=== PATIENT | female | born 1960 | race Caucasian/White ===

== ENCOUNTER → 2021-04-13 10:07 | Outpatient (CLI) | payer OTHER ==
[2014-07-29 15:10] VITALS: BMI 23.2
[~2021-04-13 10:07] MED LIST: ASPIRIN325 MG PO; CHANTIX 1 MG TAB1 MG PO; ECOTRIN325 MG PO; EFFIENT10 MG PO; LIPITOR10 MG PO; LISINOPRIL2.5 MG PO; LOPRESSOR25 MG PO; SYNTHROID100 MCG PO; ZIAC 5-6.25 MG1 TAB PO
--- NOTE | 2021-04-17 09:26 | ST ---
PATIENT:DEEPA CADET MEDICAL RECORD: [id number] SEX: F LOCATION:[facility] ORDER #: ADMISSION DATE: 04/13/21 AGE OF PATIENT: 60 REFERRING PHYSICIAN: INTERPRETING PHYSICIAN: ROBERT FORMAN MD DATE OF SERVICE: 04/13/2021 NUCLEAR STRESS TEST Gated: Shows decreased thickening of wall motion of the anterior apex. However, LV function remains normal with a calculated EF of 71%. SPECT imaging: SPECT imaging performed. Short axis view shows a defect from the mid anterior wall down to the anterior apex and true apical region. This confirmed the horizontal axis with a reversible defect from the mid anterior wall down to the anterior apex and true apical region. Vertical axis shows a reversible apical defect. FINAL IMPRESSION: 1. Abnormal gated with abnormal wall motion, but with preserved EF 71%. 2. Abnormal SPECT imaging with a reversible defect seen in all 3 views The defect severity is severe, defect size is medium. FINAL IMPRESSION: This is a patient with a known history of coronary artery disease and multiple risk factors. The scan is certainly concerning for recurrence of [place] disease versus restenosis of previous intervention. LV function remains normal. Angiography is recommended if clinically indicated. TRANSINT:[id number] Voice Confirmation ID: [id number] DOCUMENT ID: [id number] ROBERT FORMAN MD at 0926 CC: [id number] DICTATION DATE: 04/14/21 0856 [place] SERVER: 04/15/21 0108 DEP CLI 04/13/21 [place] [id number]
== END | disposition home or self-care (01) ==
LOC: D.HCCARDIO 10:07
PROVIDERS: ATTEND Internal Medicine Interventional Cardiology
DX: R07.9 Chest pain, unspecified (principal)

== ENCOUNTER 2021-04-25 06:45 | Day surgery (SDC) | payer OTHER ==
[~2021-04-25] VITALS: Ht 157.5 cm; Wt 71.2 kg
--- NOTE | ~2021-04-25 | HEMODYNAMI ---
PATIENT:DEEPA CADET MEDICAL RECORD: [id number] : 58 LOCATION:[facility] ADMISSION DATE: 04/25/21 Generatedon:19:45 Patient name: DEEPA CADET Patient #: [id number] SSN: : Date of study: 04/25/2021 Page: Of Hemodynamic Procedure Report Patient Data Patient Demographics Procedure consent was obtained First Name: DEEPA Gender: Female Last Name: HELIO : 1960 [facility] Initial: LATISHA Age: 60 year(s) Patient #: [id number] Race: Unknown Additional ID: [id number] Contact details [address]: [address] [place] [address] State: [place] City: [place] Zip code: [address] Past Medical History Performed procedures and imaging results Date Procedure Procedure Results Comments Stress testing Positive->Intermediate with SPECT MPI risk History of disease Date Diagnosis Comments CAD Allergies Allergen Reaction Date Comments Reported Other allergy 04/25/2021 HYDROCODONE Admission Admission Data Admission Date: 04/25/2021 Admission Time: 6:45 Arrival Date: 04/25/2021 Arrival Time: 0:00 Height (in.): 61.81 BSA: 1.72 (m2) Height (cm.): 157 BMI: 28.8 (kg/m2) Weight (lbs.): 156.53 Weight (kg.): 71 Lab Results Lab Result Date: 04/25/2021 Lab Result Time: 0:00 Biochemistry Name Units Result Min Max BUN mg/dl 12 --(-*--)-- 7 18 Creatinine mg/dl 0.5 -*(----)-- 0.6 1.3 eGFR ml/min 90 --(*---)-- 90 120 NONAFRICAN CBC Name Units Result Min Max Hematocrit % 41.1 -*(----)-- 42 54 Hemoglobin g/dl 14 --(*---)-- 13.5 17.5 Procedure Procedure Types Cath Procedure Diagnostic Procedure [facility] w/Coronaries Sedation Charges Moderate Sedation 10-24 minutes Peripheral Cath Diagnostic Procedure Independent Driver Peripheral Procedures AFRO Diagnostic Procedure Description Procedure Date Procedure Date: 04/25/2021 Procedure Start Time: 9:26 Procedure End Time: 9:43 Procedure Staff Name Function Enoc Beck MD Performing Physician Lidia Johnson RT Monitor Josh Barnhart RT Scrub Jamie Dawkins RN Nurse Todd Darden RN Appraiser Land Procedure Data Cath Procedure Fluoroscopy Diagnostic fluoroscopy Total fluoroscopy Time: 3.9 time: 3.9 min min Diagnostic fluoroscopy Total fluoroscopy dose: 617 dose: 617 mGy mGy Contrast Material Contrast Material Type Amount (ml) Isovue 300 122 Entry Location Entry Primary Successful Side Size Upsize Upsize Entry Closure Succes sful Closure Location (Fr) 1 (Fr) 2 (Fr) Remarks Device Remarks Femoral Right 5 Fr Exoseal artery Estimated blood loss: 5 ml Diagnostic catheters Device Type Used For End Catheter Placement MULTIPACK JL 4.0 5Fr Procedure catheter MULTIPACK 3DRC 5Fr Procedure catheter MULTIPACK Pigtail 5 Fr Procedure catheter DIAGNOSTIC JL 3.5 5Fr Procedure catheter ([id number]) Procedure Complications No complications Procedure Medications Medication Administration Route Dosage 0.9% NaCl I.V. 100 ml/hr Oxygen etCO2 Nasal cannula 2 l/min Heparin Flush Bag added to field 2 bags (1000units/500ml NS) Lidocaine 2% added to field 20 Versed I.V. 1 mg Fentanyl I.V. 50 mcg Versed I.V. 1 mg Fentanyl I.V. 50 mcg Hemodynamics Rest BSA: 1.72 (m2) O2 Consumption: Estimated: 161.68 (ml/min) O2 Consumption indexed : Estimated:94 (ml/min/m) Heart Rate: 69 (bpm) Pressure Samples Time Site Value (mmHg) Purpose Heart Use Rate(bpm) 9:31 LV 119/18,20 Snapshot 69 Snapshots Pre Cath Intra NCS Post Cath Vital Signs Time Heart Resp SPO2 etCO2 NIBP (mmHg) Rhythm Pain Sedation Rate (ipm) (%) (mmHg) Status Level (bpm) 9:15:33 59 13 100 21.8 140/73(118) NSR 0 (11) 10(A) , No pain 9:19:40 59 18 97 27.8 121/79(81) NSR 0 (11) 10(A) , No pain 9:23:52 58 18 97 21.7 95/57(73) NSR 0 (11) 10(A) , No pain 9:28:00 66 16 91 8.2 92/57(76) NSR 0 (11) 9(A) , No pain 9:32:02 71 17 94 34.5 107/66(91) NSR 0 (11) 9(A) , No pain 9:36:14 80 10 94 12 102/56(81) NSR 0 (11) 10(A) , No pain 9:41:06 78 9 93 29.3 104/64(78) NSR 0 (11) 10(A) , No pain Medications Time Medication Route Dose Verified Delivered Reason Notes Effe ctiveness by by 9:13:57 0.9% NaCl I.V. 100 Jamie Jamie Per ml/hr Juancho Dawkins physician RN RN 9:14:08 Oxygen etCO2 2 Jamie Jamie for low 02 Nasal l/min Lorigan Lorigan sats cannula RN RN 9:14:19 Heparin Flush added 2 Jamie Jamie used for Bag to bags Lorigan Lorigan procedure (1000units/500ml field RN RN NS) 9:14:33 Lidocaine 2% added 20ml Jamie Jamie for local to vial Lorigan Lorigan anesthetic field RN RN 9:22:41 Versed I.V. 1 mg Jamie Jamie for Lorigan Lorigan sedation RN RN 9:22:59 Fentanyl I.V. 50 Jamie Jamie for mcg Lorigan Lorigan sedation RN RN 9:25:00 Versed I.V. 1 mg Jamie Jamie for Lorigan Lorigan sedation RN RN 9:25:05 Fentanyl I.V. 50 Jamie Jamie for mcg Lorigan Lorigan sedation RN corporate ethics officer Log Time Note 8:55:24 Informed consent obtained and on chart 8:56:49 Procedure Status Elective Heart Cath (OP). 8:56:53 Plan of Care:Hemodynamics will remain stable., Cardiac rhythm will remain stable., Comfort level will be maintained., Respiratory function will remain adequate., Patient/ family verbilizes understanding of procedure., Procedure tolerated without complication., Recovers from procedure without complications.. 8:56:55 Time tracking: Regular hours (M-F 7:00 - 5:00) 8:57:06 H&P Date Dictated: 04/05/2021 Within 30 days and on chart., H&P Addendum completed by physician on day of procedure. (MUST COMPLETE FOR ALL OUTPATIENTS). 8:57:21 Patient allergic to Other allergyHYDROCODONE 8:58:27 Todd Darden RN sent for patient. Start room use. 9:05:33 Lab Result : eGFR NONAFRICAN 90 ml/min 9:05:33 Lab Result : Hemoglobin 14 g/dl 9::33 Lab Result : BUN 12 mg/dl 9::33 Lab Result : Creatinine 0.5 mg/dl 9:05:33 Lab Result : Hematocrit 41.1 % 9:05:38 Patient Weight : 156.53 lbs 9:05:41 Patient Height : 61.81 inches 9:05:45 Arrival Date: 04/25/2021 12:00:00 AM 9:07:22 Patient received from Pre/Post Procedure Room to CCL 1 Alert and oriented. Tansferred to table in Supine position. 9:07:23 Warm blankets applied, and juli hugger turned on for patient comfort. 9:07:23 Correct patient and procedure confirmed by team. 9:13:57 0.9% NaCl 100 ml/hr I.V. was administered by Jamie Dawkins RN; Per physician; Verbal order read back and verified. 9:14:08 Oxygen 2 l/min etCO2 Nasal cannula was administered by Jamie Dawkins RN; for low 02 sats; Verbal order read back and verified. 9:14:19 Heparin Flush Bag (1000units/500ml NS) 2 bags added to field was administered by Jamie Dawkins RN; used for procedure; Verbal order read back and verified. 9:14:28 ECG and BP/O2 sat monitors applied to patient. 9:14:30 Vital chart was started 9:14:33 Lidocaine 2% 20ml vial added to field was administered by Jamie Dawkins RN; for local anesthetic; Verbal order read back and verified. 9:14:34 Rhythm: sinus rhythm 9:14:35 Full Disclosure recording started 9:14:36 Pre-procedure instructions explained to patient. 9:14:36 Pre-op teaching completed and patient verbalized understanding. 9:14:38 Family in patients room. 9:14:39 Patient NPO since Midnight. 9:14:44 Is the patient allergic to Iodine/contrast media? No. 9:14:46 Is patient on blood thinner?Yes 9:14:48 ACC The patient was administered the following blood thiners within the last 24 hours: ACCPlavix 9:14:51 Patient diabetic? No. 9:14:53 Patient not . Patient is over age 55. 9:15:39 Previous problem with sedation/anesthesia? No ? 9:15:40 Snore? Yes 9:15:41 Sleep apnea? No 9:15:43 Deviated septum? No 9:15:44 Opens mouth fully? Yes 9:15:48 Sticks out tongue? Yes 9:15:49 Airway obstruction? No ? 9:15:52 Dentures? No ? 9:16:03 Patient pain scale 0/10 ?. 9:16:13 Lab results completed and on chart. 9:16:18 IV patent on arrival in left hand with 0.9% NaCl at KVO. 9:16:25 Stress Test: yes; abnormal ANTERIOR 9:16:29 Right groin area was prepped with chlora-prep and draped in sterile fashion 9:16:31 Alarms reviewed by R. N. 9:16:31 Sharps counted by scrub and verified by R.N. 9:18:09 Procedure type changed to Cath procedure, Diagnostic procedure, LHC, LHC w/Coronaries, Sedation Charges, Moderate Sedation 10-24 minutes, Peripheral Cath Diagnostic Procedure, Independent Driver Peripheral Procedures, AFRO Diagnostic 9:19:23 Use device set Femoral Dx 9:19:24 ACIST Syringe (46334) opened to sterile field. 9:19:24 Bag Decanter (2002S) opened to sterile field. 9:19:26 ACIST Hand Control (76245) opened to sterile field. 9:19:26 ACIST Manifold (90720) opened to sterile field. 9:19:27 Tegaderm 4 x 4 (1626W) opened to sterile field. 9:19:28 Medline Cath Pack ([id number]) opened to sterile field. 9:19:30 DIAGNOSTIC Multipack 5Fr catheter set (TX4134) opened to sterile field. 9:19:32 SHEATH 5FR [place] (NDL611) opened to sterile field. 9:19:33 EMERALD Guide Wire (817-331) opened to sterile field. 9:20:51 --------ALL STOP TIME OUT------ 9::52 Final Timeout: patient, procedure, and site verified with staff and physician. All members of the team are in agreement. 9::52 Right groin site verified by team. 9:20:55 Fire Safety Assessment: A--An alcohol-based skin anteseptic being used preoperatively., C--Open oxygen or nitrous oxide is being used., D--An ESU, laser, or fiber-optic light is being used. 9:20:57 Physical assessment completed. ASA score P 2 - A patient with mild systemic disease as per Enoc Beck MD. 9::59 1) 90+ Normal kidney functon but urine findings or structural abnormalities or genetic trait point to kidney disease. 9:21:02 Maximum allowable contrast dose (3.7 X eGFR X 0.75)250 ml. 9:21:05 Sedation plan: IV Moderate Sedation Medication:Versed, Fentanyl 9::14 Zero performed for pressure channel P1 9::41 Versed 1 mg I.V. was administered by Jamie Dawkins RN; for sedation; Verbal order read back and verified. 9::59 Fentanyl 50 mcg I.V. was administered by Jamie Dawkins RN; for sedation; Verbal order read back and verified. 9:25:00 Versed 1 mg I.V. was administered by Jamie Dawkins RN; for sedation; Verbal order read back and verified. 9:25:02 Procedure started. 9:25:05 Fentanyl 50 mcg I.V. was administered by Jamie Dawkins RN; for sedation; Verbal order read back and verified. 9:25:14 Zero performed for pressure channel P1 9:25:18 Zero performed for pressure channel P1 9:25:20 Zero performed for pressure channel P1 9::31 Zero performed for pressure channel P1 9::34 Zero performed for pressure channel P1 9::38 Zero performed for pressure channel P1 9::43 Zero performed for pressure channel P1 9::54 Zero performed for pressure channel P1 9:26:04 Local anesthetic to right femoral artery with Lidocaine 2% by Enoc Beck MD.INITIAL ACCESS ONLY 9:26:28 A 5 Fr sheath was inserted into the Right Femoral artery 9::42 A MULTIPACK JL 4.0 5Fr catheter was advanced over the wire and used for Procedure. 9:28:03 LCA angiography performed. 9:28:04 Catheter removed. 9:28:17 A MULTIPACK 3DRC 5Fr catheter was advanced over the wire and used for Procedure. 9:29:57 RCA angiography performed. 9:29:59 Catheter removed. 9:30:01 ACCDominant side:Right 9:30:09 A MULTIPACK Pigtail 5 Fr catheter was advanced over the wire and used for Procedure. 9:31:05 LV gram done using PERSAUD 9:31:08 Injector settings: Ml/sec: 10, Volume: 20, 9:31:41 LV hemodynamics recorded. 9:31:45 EF : 55 % 9:32:00 PIGTAIL PULLED DOWN FOR AFRO 9:32:25 Abdominal angiogram w/ runoff was performed. 9:32:28 Left leg runoff performed. 9:33:20 Right leg runoff performed. 9:33:50 Catheter removed. 9:34:19 A DIAGNOSTIC JL 3.5 5Fr catheter ([id number]) was advanced over the wire and used for Procedure. 9:36:40 LCA angiography performed. 9:37:25 Catheter removed. 9:38:50 EXOSEAL 5Fr (EX500) opened to sterile field. 9:39:15 Sheath removed intact; hemostasis achieved with Exoseal to the Right Femoral artery. 9:39:17 Procedure ended.(Physican Out) 9:39:38 Fluoroscopy time 03.90 minutes. 9:39:47 Fluoroscopy dose: 617 mGy 9:39:47 Flurop Dose total: 617 9:39:59 Contrast amount:Isovue 300 122ml. 9:42:07 Dose Area Product 05864 mGy/cm. 9:42:09 Maximum allowable dose exceeded? No. 9:42:09 Sharps counted by scrub and verified by R.N. 9:42:13 Insertion/operative site no bleeding no hematoma. 9:42:16 Post-op/insertion site Right Femoral artery dressed using a 4 x 4 and Tegaderm. 9:42:19 Post-procedure physical assessment completed. ASA score P 2 - A patient with mild systemic disease as per Enoc Beck MD. 9:42:22 Post procedure rhythm: sinus rhythm 9:42:26 Estimated blood loss: 5 ml 9:42:27 Post procedure instruction explained to patient.Patient verbalizes understanding. 9:42:27 Patient needs reinforcement of post procedure teaching. 9:43:02 Procedure and supply charges have been captured, reviewed, submitted and are correct. 9:43:05 Procedure Complication : No complications 9:43:07 Vital chart was stopped 9:43:09 [facility] Findings: MVD- CABG consult 9:43:11 Operative report dictated upon procedure completion. 9:43:11 See physician's report for complete and final results. 9:43:13 Report given to Pre/Post Procedure Room. 9:43:16 Patient transfered to Pre/Post Procedure Room with Bed. 9:43:18 Procedure ended. 9:43:18 Full Disclosure recording stopped 9:43:21 End room use (Document Last) 9:43:40 End room use (Document Last) 9:44:56 End room use (Document Last) Device Usage Item Name Manufacture Quantity Catalog Hospital Part Current Minimal L ot# / Number Charge Number Stock Stock Serial# Code ACIST Acist 1 35217 269531 016210 639717 20 Syringe Medical (52875) Systems Inc Bag Microtek 1 2001S 407031 60732 175934 5 Decanter Medical Inc. (2001S) ACIST Hand Acist 1 20676 797536 807297 896052 5 Control Medical (28159) Systems Inc ACIST Acist 1 73162 480292 791811 975359 5 Manifold Medical (14230) Systems Inc Tegaderm 4 3M 1 1626W 548048 314533 845314 5 x 4 (1626W) Medline Medline 1 [id number] 378585 17084 655128 5 Cath Pack ([id number]) DIAGNOSTIC Cardinal 1 NY0732 079293 10879 269156 30 Multipack Health 5Fr catheter set (XB6863) SHEATH 5FR Terumo 1 BIF292 384057 734454 554276 5 [place] (NUM404) EMERALD Cardinal 1 502-455 912915 577199 504709 5 Guide Wire [facility] (231-489) MULTIPACK Cardinal 1 109927 5 JL 4.0 5Fr Health catheter MULTIPACK Cardinal 1 464854 5 3DRC 5Fr Health catheter MULTIPACK Cardinal 1 759027 5 Pigtail 5 Health Fr catheter DIAGNOSTIC Cardinal 1 [id number] 655320 502985 268678 5 JL 3.5 5Fr Health catheter (752226L) EXOSEAL 5Fr Cardinal 1 EX500 510244 231568 354119 10 (EX500) Health Signature Audit [place] Stage Time Signature Unsigned Intra-Procedure 04/25/2021 Lidia Johnson 9:43:40 AM RT(R) Intra-Procedure 04/25/2021 Jamie 9:44:56 AM Juancho SOTELO Intra-Procedure 04/25/2021 Enoc Arias 9:45:11 AM Eliud [facility] [address] [place] [address]
[2021-04-25] MEDS ORDERED: BAYER CHEWABLE81 MG PO (07:29)
[2021-04-25] MEDS ORDERED: PLAVIX75 MG PO (07:29)
[2021-04-25] MEDS ORDERED: CRESTOR40 MG PO (07:32)
[2021-04-25] MEDS ORDERED: SYNTHROID125 MCG PO (07:33)
[2021-04-25] MEDS ORDERED: PEPCID AC20 MG PO (07:34)
[2021-04-25 07:48] VITALS: BP 145/79; Ht 157.5 cm; Wt 71.2 kg
[2021-04-25 07:53] LABS: BASOPHILS 0.5 % (0-2); EOSINOPHILS 7.6 % (0-7); HEMATOCRIT 41.1 % (36.0-48.0); IMMATURE GRANULOCYTES 0.1 % (0-5); LYMPHOCYTES 25.9 % (15-50); MCH 31.1 pg (26.0-34.0); MCHC 34.1 g/dL (31.0-37.0); MCV 91.3 fL (80.0-100.0); MEAN PLATELET VOLUME 9.7 fL (7.4-10.4); MONOCYTES 11.4 % (2-11); NEUTROPHILS 54.5 % (40-80); RDW 13.2 % (11.5-14.5); WBC 7.4 10x3/uL (4.8-10.8)
[2021-04-25 07:54] LABS: PLATELET COUNT 279 10x3/uL (130-400)
[2021-04-25 08:19] LABS: ALT (SGPT) 26 U/L (10-68); CALC OSMOLALITY 281 mosm/kg (275-300); CALCIUM 8.7 mg/dL (8.5-10.1); CHLORIDE - SERUM 109 mmol/L (98-107); CHOL - HDL RATIO 2.7 ratio (2.3-4.1); CHOLESTEROL, TOTAL 141 mg/dL (0-200); CREATININE - SERUM 0.5 mg/dL (0.6-1.3); GLUCOSE 109 mg/dL (74-106); HDL CHOLESTEROL 53 mg/dL (32-96); LDL CHOLESTEROL 72 mg/dL (0-100); LDL-HDL RATIO 1.4 ratio (1.5-3.5); POTASSIUM - SERUM 4.8 mmol/L (3.5-5.1); SODIUM 141 mmol/L (136-145); TRIGLYCERIDE 80 mg/dL (30-200); UREA NITROGEN 12 mg/dL (7-18); eGFR NON AFRICAN AMERICAN > 90 mL/min (90-120)
--- NOTE | 2021-04-25 09:50 | NUR ---
PT ARRIVED BY STRETCHER. PLACED ON MONITORS. ASSESSMENT COMPLETED. VSS AT THIS TIME.
--- NOTE | 2021-04-25 10:05 | NUR ---
RIGHT GROIN DRESSING C/D/I. NO S/S OF HEMATOMA NOTED. CALL LIGHT WITHIN REACH. VSS AT THIS TIME. PT DENIES NAUSEA/PAIN.
--- NOTE | 2021-04-25 10:35 | NUR ---
RIGHT GROIN DRESSING C/D/I. NO S/S OF HEMATOMA NOTED. RIGHT PEDAL PULSE WITH DOPPLER. NO CHANGES. VSS AT THIS TIME. FAMILY AT BEDSIDE. PT DENIES NAUSEA/PAIN. TOLERATING SIPS OF WATER. FAMILY AT BEDSIDE.
--- NOTE | 2021-04-25 11:00 | NUR ---
RIGHT GROIN DRESSING C/D/I. NO S/S OF HEMATOMA NOTED. HEAD OF BED INC TO 30 DEGREES. TOLERATED WELL. SET UP WITH SANDWICH TRAY AND DRINK. DENIES NAUSEA/PAIN. FAMILY AT BEDSIDE. CALL LIGHT WITHIN REACH.
--- NOTE | 2021-04-25 11:45 | NUR ---
RIGHT GROIN DRESSING C/D/I. NO S/S OF HEMATOMA NOTED. PIV D/C'D WITH CATH TIP INTACT. TOLERATED WELL. VSS. PT INSTRUCTED TO GET UP AND DRESSED AT THIS TIME. FAMILY AT BEDSIDE TO ASSIST. CALL LIGHT LEFT WITHIN REACH.
--- NOTE | 2021-04-25 11:50 | NUR ---
DISCUSSED DISCHARGE INSTRUCTIONS WITH PT AND PT'S FAMILY. THEY VOICED UNDERSTANDING.
--- NOTE | 2021-04-25 12:00 | NUR ---
PT AMBULATED TO RESTROOM. VOIDED WITHOUT DIFFICULTY. STEADY GAIT NOTED. PT TAKEN OUT TO VEHICLE BY WHEELCHAIR. NO S/S OF HEMATOMA NOTED.
--- NOTE | 2021-04-26 14:27 | OP ---
PATIENT NAME: DEEPA ANDREW MEDICAL RECORD: [id number] :58 LOCATION:[facility] ADMISSION DATE: SURGEON: ROBERT FORMAN MD DATE OF OPERATION: 04/25/2021 PROCEDURE: Left heart catheterization, selective coronary angiography, plus aortofemoral runoff, right femoral artery approach. CATHETERS: A 5-Upper Sorbian sheath, 5/4 left and right Jade, 5/4 pig. The procedure was well tolerated. The patient was returned to the andrew. Sheath removed. ExoSeal device placed. FINDINGS: Left ventriculography in 30-degree PERSAUD view: Normal wall motion and normal systolic function. CORONARY ANATOMY: Left main: Left main has a previously placed stent, it was difficult to engage due to end-stent in the aorta; however, this basically subtotally occluded and fills into the circumflex ramus branch system. These both have ostial stenosis of 90%. This is an extension from the left main. LAD: The LAD is totally occluded and fills via right to left collaterals. Right coronary: Has multiple areas of stenosis, probably most significant at the takeoff of the PDA of 90%. IMPRESSION: Multivessel coronary artery disease including left main disease, probably best suited for coronary artery bypass grafting. Dr. Coe was consulted for this purpose. Next, the pigtail catheter was drawn to the area of the abdominal aorta. Aortofemoral runoff was performed. Abdominal aorta shows no evidence of stenosis, no evidence of dissection or aneurysmal dilatation. Right system: The right iliac system and the right internal iliac has probably diffuse 70% stenosis leading to the femoral system. The superficial femoral is totally occluded and reconstitutes distally via collaterals above the knee with 2-vessel runoff. Left system: The left iliac system shows wall disease, but no significant stenosis. The left femoral system and superficial femoral is totally occluded again, almost mirror image of the right and reconstitutes distally above the knee again with a 2-vessel runoff distally. IMPRESSION: Severe peripheral vascular disease. We will consult Dr. Coe for coronary bypass grafting, consider intervention. TRANSINT:[id number] Voice Confirmation ID: [id number] DOCUMENT ID: [id number] OPERATIVE REPORT [id number] DEEAP ANDREW ROBERT FORMAN MD at 1422 CC: [id number] DICTATION DATE: 04/25/21 0949 HAND I THERMAL CUTTER: 04/25/21 1036 [facility] 04/25/21 [place] [id number] [place], [facility]901
== END 2021-04-25 12:00 | disposition home or self-care (01) ==
LOC: D.CATH 06:45
PROVIDERS: ATTEND Internal Medicine Interventional Cardiology
DX: I25.119 Atherosclerotic heart disease of native coronary artery with unspecified angina pectoris (principal); R07.9 Chest pain, unspecified; R94.31 Abnormal electrocardiogram [ECG] [EKG]; I10 Essential (primary) hypertension; J44.9 Chronic obstructive pulmonary disease, unspecified; I70.213 Atherosclerosis of native arteries of extremities with intermittent claudication, bilateral legs

== ENCOUNTER → 2021-04-26 16:49 | Outpatient (CLI) | payer OTHER ==
[2021-04-25 07:48] VITALS: BMI 28.7
[~2021-04-26 16:49] MED LIST changes: +BAYER CHEWABLE81 MG PO; +CRESTOR40 MG PO; +PEPCID AC20 MG PO; +PLAVIX75 MG PO; +SYNTHROID125 MCG PO
[2021-04-26 17:50] LABS: PLT FUNCT.(P2Y12) PLAVIX 100 PRU (194-418)
== END | disposition home or self-care (01) ==
LOC: D.LAB 16:49
PROVIDERS: ATTEND Thoracic Surgery (Cardiothoracic Vascular Surgery)
DX: I25.10 Atherosclerotic heart disease of native coronary artery without angina pectoris (principal)

== ENCOUNTER 2021-05-01 07:30 | Inpatient (IN) | payer OTHER ==
[~2021-05-01] VITALS: Ht 157.5 cm; Wt 75.5 kg
--- NOTE | 2021-05-01 07:49 | NUR ---
PT TO ROOM FROM ADMISSIONS DIRECT ADMIT. FAMILY PRESENT. WILL NOTIFY PHYSICIAN OF ARRIVAL.
[2021-05-01 12:27] VITALS: BP 130/75
[2021-05-01 13:49] VITALS: BP 142/81; BMI 28.2
--- NOTE | 2021-05-01 19:29 | NUR ---
RECIEVED UP IN BED WITH HOB ELEVATED. A/O X4. UP AD GLADIS TO B/R. [place] HAT PLACED IN TOILET FOR URINE COLLECTION. ASKED HER TO PUT CALL LIGHT ON WHEN ABLE TO URINATE. GAVE VERBAL AGREEMENT. DENIES ANY NEEDS AT THIS TIME.
[2021-05-01 23:07] VITALS: BP 109/52
[2021-05-02 00:57] VITALS: BP 105/67
[2021-05-02 04:51] VITALS: BP 100/50
[2021-05-02 07:13] LABS: BASOPHILS 1.1 % (0-2); EOSINOPHILS 8.6 % (0-7); MCH 30.9 pg (26.0-34.0); MCHC 34.1 g/dL (31.0-37.0); MEAN PLATELET VOLUME 7.7 fL (7.4-10.4); MONOCYTES 9.8 % (2-11); NEUTROPHILS 47.5 % (40-80); PLATELET COUNT 281 10x3/uL (130-400); RBC 4.55 10x6/uL (4.00-5.40); RDW 13.8 % (11.5-14.5)
[2021-05-02 07:20] LABS: INR 1.04 (0.85-1.17); PROTIME 12.6 SECONDS (11.6-15.0)
--- NOTE | 2021-05-02 07:20 | NUR ---
RECIEVE REPORT. ALERT AND ORIENTED X4. SITTING UP IN BED. SINUS RHYTHM ON TELEMETRY. ADJUST HEPARIN PER PROTOCOL. CONTINUE PLAN OF CARE AND SAFETY PRECAUTIONS.
[2021-05-02 07:33] LABS: ALBUMIN 3.5 g/dL (3.4-5.0); ALKALINE PHOSPHATASE 100 U/L (30-120); ALT (SGPT) 32 U/L (10-68); BILIRUBIN - TOTAL 0.41 mg/dL (0.2-1.3); CALC OSMOLALITY 283 mosm/kg (275-300); CALCIUM 8.7 mg/dL (8.5-10.1); CARBON DIOXIDE 27.4 mmol/L (21.0-32.0); CHLORIDE - SERUM 107 mmol/L (98-107); CHOLESTEROL, TOTAL 124 mg/dL (0-200); CREATININE - SERUM 0.7 mg/dL (0.6-1.3); GLUCOSE 106 mg/dL (74-106); HEMATOCRIT 41.1 % (36.0-48.0); MAGNESIUM - SERUM 2.1 mg/dL (1.8-2.4); PHOSPHOROUS 3.7 mg/dL (2.5-4.9); POTASSIUM - SERUM 4.2 mmol/L (3.5-5.1); PRO BNP 172 pg/mL (0-125); PROTEIN - SERUM 7.1 g/dL (6.4-8.2); SODIUM 143 mmol/L (136-145); T4 THYROXIN - FREE 1.51 ng/dL (0.76-1.46); THYROID STIMULATING HORMONE 0.57 uIU/mL (0.36-3.74); UREA NITROGEN 9 mg/dL (7-18); URIC ACID 4.8 mg/dL (2.6-7.2); WBC 6.7 10x3/uL (4.8-10.8); eGFR NON AFRICAN AMERICAN 90 mL/min (90-120)
[2021-05-02 07:34] LABS: MCV 90.4 fL (80.0-100.0)
[2021-05-02 07:37] LABS: APTT 45.7 SECONDS (22.8-39.4)
[2021-05-02 08:00] VITALS: BP 99/69
[2021-05-02 08:19] LABS: PLT FUNCT.(P2Y12) PLAVIX 220 PRU (194-418)
--- NOTE | 2021-05-02 11:45 | NUR ---
ALERT AND ORIENTED X4. SITTING UP IN BED. URINE COLLECTED AND TAKEN TO LAB. CONTINUE PLAN OF CARE AND SAFETY PRECAUTIONS.
[2021-05-02 12:00] VITALS: BP 101/80
[2021-05-02 12:19] LABS: BACTERIA FEW HPF (NONE SEEN); BILIRUBIN NEGATIVE (NEGATIVE); KETONE NEGATIVE (NEGATIVE); NITRITE NEGATIVE (NEGATIVE); SQUAMOUS EPITHELIAL 0-5 HPF (0-4)
--- NOTE | 2021-05-02 14:15 | NUR ---
ALERT AND ORIENTED X4. UP AMBULATING IN [place]. PTT-48. INCREASE HEPARIN DRIP TO 8.
[2021-05-02 16:00] VITALS: BP 143/73
[2021-05-02 21:31] VITALS: BP 171/76
[2021-05-03] VITALS (7 sets, daily range): BP systolic 101–139; BP diastolic 51–76
--- NOTE | 2021-05-03 00:05 | NUR ---
AMBULATING IN ROOM. @2000 PTT WAS 60. HEPARIN GTT INCREASED TO 9. NO COMPLAINTS.
[2021-05-03 04:39] LABS: BASOPHILS 0.8 % (0-2); EOSINOPHILS 10.6 % (0-7); HEMATOCRIT 39.9 % (36.0-48.0); HEMOGLOBIN 13.5 g/dL (12-16); LYMPHOCYTES 32.4 % (15-50); MCH 30.8 pg (26.0-34.0); MCHC 33.9 g/dL (31.0-37.0); MCV 90.8 fL (80.0-100.0); MEAN PLATELET VOLUME 8.1 fL (7.4-10.4); MONOCYTES 10.3 % (2-11); NEUTROPHILS 45.9 % (40-80); PLATELET COUNT 269 10x3/uL (130-400); RDW 13.2 % (11.5-14.5); WBC 7.7 10x3/uL (4.8-10.8)
[2021-05-03 05:17] LABS: ALBUMIN 3.3 g/dL (3.4-5.0); ALKALINE PHOSPHATASE 105 U/L (30-120); ALT (SGPT) 31 U/L (10-68); BILIRUBIN - TOTAL 0.29 mg/dL (0.2-1.3); CALC OSMOLALITY 283 mosm/kg (275-300); CALCIUM 8.7 mg/dL (8.5-10.1); CARBON DIOXIDE 27.2 mmol/L (21.0-32.0); CHLORIDE - SERUM 108 mmol/L (98-107); CREATININE - SERUM 0.8 mg/dL (0.6-1.3); GLUCOSE 109 mg/dL (74-106); MAGNESIUM - SERUM 2.1 mg/dL (1.8-2.4); PHOSPHOROUS 4.3 mg/dL (2.5-4.9); POTASSIUM - SERUM 3.8 mmol/L (3.5-5.1); PROTEIN - SERUM 6.7 g/dL (6.4-8.2); SODIUM 142 mmol/L (136-145); eGFR NON AFRICAN AMERICAN 77 mL/min (90-120)
--- NOTE | 2021-05-03 05:24 | NUR ---
PTT IS 57.5. HEPARIN GTT INCREASED TO 10 PER PROCOTOL
[2021-05-03 05:25] LABS: UREA NITROGEN 12 mg/dL (7-18)
--- NOTE | 2021-05-03 12:00 | NUR ---
NURSE DOES NOT CHANGE THE DRIP RATE, HEPARIN PROTOCOL TELLS NURSE TO LEAVE DRIP THE SAME AT 10. NURSE HAS WITNESS TO SIGN OFF ON FLOWSHEET.
--- NOTE | 2021-05-03 20:04 | NUR ---
RECIEVED ALERT AND ORIENTED X4. UP AD GLADIS. FAMILY AT BEDSIDE. DENIES ANY NEEDS AT THIS TIME.
[2021-05-04] VITALS (46 sets, daily range): BP systolic 101–153; BP diastolic 54–80
[2021-05-04 05:58] LABS: BASOPHILS 0.7 % (0-2); HEMOGLOBIN 13.5 g/dL (12-16); LYMPHOCYTES 33.1 % (15-50); MCH 30.8 pg (26.0-34.0); MCHC 33.9 g/dL (31.0-37.0); MCV 90.8 fL (80.0-100.0); MEAN PLATELET VOLUME 7.9 fL (7.4-10.4); MONOCYTES 9.2 % (2-11); PLATELET COUNT 269 10x3/uL (130-400); RBC 4.41 10x6/uL (4.00-5.40); WBC 8.2 10x3/uL (4.8-10.8)
[2021-05-04 06:24] LABS: ALBUMIN 3.5 g/dL (3.4-5.0); ALKALINE PHOSPHATASE 103 U/L (30-120); ALT (SGPT) 21 U/L (10-68); BILIRUBIN - TOTAL 0.35 mg/dL (0.2-1.3); CALC OSMOLALITY 280 mosm/kg (275-300); CALCIUM 8.8 mg/dL (8.5-10.1); CARBON DIOXIDE 27.8 mmol/L (21.0-32.0); CHLORIDE - SERUM 108 mmol/L (98-107); CREATININE - SERUM 0.8 mg/dL (0.6-1.3); GLUCOSE 102 mg/dL (74-106); MAGNESIUM - SERUM 2.1 mg/dL (1.8-2.4); PHOSPHOROUS 4.1 mg/dL (2.5-4.9); POTASSIUM - SERUM 3.8 mmol/L (3.5-5.1); SODIUM 142 mmol/L (136-145); UREA NITROGEN 8 mg/dL (7-18); eGFR NON AFRICAN AMERICAN 77 mL/min (90-120)
[2021-05-04 11:56] LABS: APTT 31.6 SECONDS (22.8-39.4); INR 1.72 (0.85-1.17); PROTIME 18.7 SECONDS (11.6-15.0)
[2021-05-04 13:37] LABS: BASOPHILS 0.3 % (0-2); EOSINOPHILS 1.3 % (0-7); HEMATOCRIT 32.6 % (36.0-48.0); HEMOGLOBIN 11.1 g/dL (12-16); LYMPHOCYTES 18.4 % (15-50); MCH 29.8 pg (26.0-34.0); MEAN PLATELET VOLUME 7.4 fL (7.4-10.4); MONOCYTES 10.6 % (2-11); NEUTROPHILS 69.4 % (40-80); RBC 3.72 10x6/uL (4.00-5.40); RDW 14.7 % (11.5-14.5); WBC 8.3 10x3/uL (4.8-10.8)
[2021-05-04 13:38] LABS: MCV 87.6 fL (80.0-100.0); PLATELET COUNT 174 10x3/uL (130-400)
--- NOTE | 2021-05-04 13:45 | NUR ---
PT ARRIVED TO UNIT AROUND 1251 VIA BED. CONNECTED TO OIL WELL PUMPER. MIDSTERNAL INCISION SAMPLE STEAMER. SUBTERNAL CT X 2 TO 20CM WALL SUCTION, NO AIR LEAK NOTED. NOVA DRAIN X 2, TPM WIRES CONNECTED. PACEMAKER CURRENTLY OFF. RIJ WITH PLASMOLYTE AT 100ML/HR, SANDRA AT 0.2MCG/KG/MIN, AMIODARONE AT 1MG/MIN. RIGHT RADIAL ALMITA SECURED IN PLACE WITH WRIST PROTECTOR. BOOKER CATHETER IN PLACE. TORI HOSE AND SCD TO LEFT LE. RLE HARVEST SITES COVERED WITH COBAN DRESSING. ON ETT 7.5, 22 LIP LINE RIGHT. VENT SETTINGS A/C 14/450/40%/5. WRIST RESTRAINTS WERE APPLIED UPON ARRIVAL PER ORDER. PT RESTING COMFORTABLY. FAMILY AT BEDSIDE. NURSE AT BEDSIDE FOR CLOSE MONITORING.
[2021-05-04 13:46] LABS: APTT 35.9 SECONDS (22.8-39.4)
[2021-05-04 13:49] LABS: INR 1.28 (0.85-1.17); PROTIME 14.8 SECONDS (11.6-15.0)
[2021-05-04 13:50] LABS: ALBUMIN 3.2 g/dL (3.4-5.0); ALKALINE PHOSPHATASE 56 U/L (30-120); BILIRUBIN - TOTAL 0.85 mg/dL (0.2-1.3); CALC OSMOLALITY 288 mosm/kg (275-300); CALCIUM 7.5 mg/dL (8.5-10.1); CARBON DIOXIDE 26.4 mmol/L (21.0-32.0); CHLORIDE - SERUM 110 mmol/L (98-107); CREATININE - SERUM 0.8 mg/dL (0.6-1.3); GLUCOSE 123 mg/dL (74-106); POTASSIUM - SERUM 4.1 mmol/L (3.5-5.1); PROTEIN - SERUM 5.3 g/dL (6.4-8.2); SODIUM 145 mmol/L (136-145); UREA NITROGEN 9 mg/dL (7-18); eGFR NON AFRICAN AMERICAN 77 mL/min (90-120)
[2021-05-04 13:52] LABS: ALT (SGPT) 27 U/L (10-68)
--- NOTE | 2021-05-04 14:15 | NUR ---
PT ARRIVED TO UNIT AT 1251 VIA BED. CONNECTED TO SENIOR OFFICE ASSISTANT. HAS RIJ WITH PLAMOLYTE AT 100ML/HR, AMIODARONE AT 33.3MG/MIN, AND SANDRA AT 0.2MCG/KG/MIN. RIGHT RADIAL ALMITA IN PLACE. MIDSTERNAL INCISION WAREHOUSE ORDER PULLER. CT X 2 TO 20CM SUCTION, NO AIR LEAK NOTED. NOVA DRAIN X2. RLE HARVEST SITES WRAPPED IN COBAN DRESSING. TORI HOSE TO LLE. PEDAL PULSES AUDIBLE WITH DOPPLER. FAMILY AT BEDSIDE. VERIFIED AMIODARONE WITH DR. TRUJILLO. WANTS IT TO CONTINUE INFUSING. TPM TURNED ON VVI 80/10/2. WILL CONTINUE TO MONITOR.
--- NOTE | 2021-05-04 14:39 | NUR ---
TPM AAI 80/10/[address] TRUJILLO.
--- NOTE | 2021-05-04 17:33 | NUR ---
PT STARTING TO WAKE UP. MOVES TOES ON COMMAND. STILL NOT ABLE TO OPEN EYES OR MOVE HANDS. DR. TRUJILLO NOTIFIED. WANTS TO CONTINUE WEANING PROTOCOL AT THIS TIME.
--- NOTE | 2021-05-04 18:51 | NUR ---
PT MORE AWAKE. OPENING EYES AND FOLLOWING SIMPLE COMMANDS.
--- NOTE | 2021-05-04 20:30 | NUR ---
Amiodarone drip off and pacing stopped, per Dr. Coe. HR NSR 68bpm.
--- NOTE | 2021-05-04 22:00 | NUR ---
Patient placed on SIMV on ventilator. Awake, alert, following commands, no sign of distress.
--- NOTE | 2021-05-04 23:50 | NUR ---
Patient placed on spontaneous breathing mode. No sign of distress. HR 72 RR 17 SpO2 98% BP 130/66. Alert, follows commands well, acknowledges plan of care. RT Ella making rounds for ventilator adjustments.
[2021-05-05] VITALS (50 sets, daily range): BP systolic 99–148; BP diastolic 55–73; Ht 157.5 cm; Wt 75.5 kg
--- NOTE | 2021-05-05 00:40 | NUR ---
Patient extubated by RT Ella, placed on 4LNC. Encouraged to TCDB and use incentive spirometry at bedside. No sign of distress, repsirations even and unlabored. Will continue to monitor, see flowsheets for details.
--- NOTE | 2021-05-05 06:00 | NUR ---
EKG completed, normal sinus rhythm, non-specific Twave abnormality. HR 83. Hardcopy placed in chart.
[2021-05-05 06:28] LABS: BASOPHILS 0.1 % (0-2); EOSINOPHILS 0.1 % (0-7); HEMATOCRIT 32.4 % (36.0-48.0); HEMOGLOBIN 10.9 g/dL (12-16); LYMPHOCYTES 7.3 % (15-50); MCH 29.9 pg (26.0-34.0); MCHC 33.5 g/dL (31.0-37.0); MCV 89.4 fL (80.0-100.0); MEAN PLATELET VOLUME 7.8 fL (7.4-10.4); MONOCYTES 9.6 % (2-11); NEUTROPHILS 82.9 % (40-80); RBC 3.63 10x6/uL (4.00-5.40); RDW 15.2 % (11.5-14.5)
[2021-05-05 06:32] LABS: PLATELET COUNT 231 10x3/uL (130-400); WBC 12.8 10x3/uL (4.8-10.8)
[2021-05-05 06:48] LABS: ALBUMIN 3.2 g/dL (3.4-5.0); ALKALINE PHOSPHATASE 61 U/L (30-120); ALT (SGPT) 28 U/L (10-68); BILIRUBIN - TOTAL 0.41 mg/dL (0.2-1.3); CALC OSMOLALITY 283 mosm/kg (275-300); CARBON DIOXIDE 27.5 mmol/L (21.0-32.0); CHLORIDE - SERUM 110 mmol/L (98-107); CREATININE - SERUM 0.8 mg/dL (0.6-1.3); GLUCOSE 129 mg/dL (74-106); MAGNESIUM - SERUM 2.3 mg/dL (1.8-2.4); PHOSPHOROUS 4.2 mg/dL (2.5-4.9); POTASSIUM - SERUM 4.1 mmol/L (3.5-5.1); SODIUM 142 mmol/L (136-145); UREA NITROGEN 9 mg/dL (7-18); eGFR NON AFRICAN AMERICAN 77 mL/min (90-120)
--- NOTE | 2021-05-05 07:15 | NUR ---
SHIFT REPORT RECEIVED. PT AWAKE AND ALERT. SITTING UP IN CHAIR. ON 4L O2 VIA NC. CVL TO RIJ WITH PLASMOLYTE AT 100ML/HR AND ZINACEF AT 12.8ML/HR. RIGHT RADIAL ALMITA SECURED IN PLACE WITH WRIST PROTECTOR. MIDSTERNAL INCISION LAUREL. SUBTERNAL CT X 2, NOVA DRAIN X 2, TPM WIRES SECURED, DRESSING C/D/I. RLE HARVEST SITES LAUREL. TORI HOSE TO LLE. RATES PAIN 7/10, CRAMPING ON CHEST. SAFETY MEASURES IN PLACE. CALL LIGHT IN REACH. WILL CONTINUE TO MONITOR.
--- NOTE | 2021-05-05 07:19 | NUR ---
Shift summary: Patient up to the chair this morning. Pain well controlled with prn administrations. Dressing changed to substernal site, cleansed with betadine, covered with 4x4 and transparent dressing, bio disc to pacer wires. Skin well approximated, sutures intact, no sign of infection. Dressing removed to RLE, open to air, no sign of infection, peripheral pulses intact.
--- NOTE | 2021-05-05 09:24 | TEE ---
PATIENT:DEEPA CADET MEDICAL RECORD: [id number] LOCATION:[place] [address] AGE OF PATIENT: 60 ADMISSION DATE: 05/01/21 SEX: F REFERRING PHYSICIAN: INTERPRETING PHYSICIAN: ROBERT FORMAN MD TRANSESOPHAGEAL ECHOCARDIOGRAM Date: 05/04/21 SRIRAM CHARGE Y INDICATIONS: CABG PREMEDICATIONS: PATIENT'S RESPONSE PROCEDURE DOPPLER MEASUREMENTS: LVIT LA PA RA LVOT RVOT Asc. Ao AV Gradient Peak AV Mean AV Area MV Gradient Peak MV Mean MV Area INTERPRETATION: Doppler: 2-D: COLOR FLOW DOPPLER NORMAL SALINE STUDY: MISCELLANOUS: DIAGNOSIS: PLAN: Clinical Secretary:3 Dr. Ramírez [employer] Supervisor: Angelique MIGUEL COMMENTS: DATE OF SERVICE: 05/04/2021 PROCEDURE: Intraoperative SRIRAM. Preop shows normal LV wall motion and wall thickening. EF greater than or equal to 55%. Aortic valve is tricuspid with good valve excursion. Left atrium appears normal. Mitral valve grossly normal. Trace MR. Postoperatively, good wall thickening and wall motion, EF 55%. Aortic valve is tricuspid with good valve excursion. Left atrium appears normal. Mitral valve appears normal. TRANSESOPHAGEAL ECHOCARDIOGRAM REPORT [id number] DEEPA CADET Trace MR. TRANSINT:[id number] Voice Confirmation ID: [id number] DOCUMENT ID: [id number] at 0924 CC: [id number] DICTATION DATE: 05/04/21 1711 FIELD ASSOCIATE: 05/04/21 1806 ADM IN [facility] [address] [place] [id number]
--- NOTE | 2021-05-05 09:58 | NUR ---
ALMITA TO RIGHT FOREARM DC'D AT THIS TIME PER ORDER. PLASMOLYTE DC'D. PT SITTING UP IN CHAIR. HAVING NAUSEA. ZOFRAN WAS GIVEN. DAUGHTER AT BEDSIDE. WILL CONTINUE TO MONITOR.
--- NOTE | 2021-05-05 13:31 | NUR ---
ASSISTED BACK TO BED. RATED PAIN 9/10 AFTER TRANSFER. MORPHINE 2MG IV GIVEN FOR PAIN. REPOSITIONED FOR COMFORT. LEAKING NOTED AT CT INSERTION SITE. WILL CONTINUE TO MONITOR.
--- NOTE | 2021-05-05 16:36 | OP ---
PATIENT NAME: DEEPA CADET MEDICAL RECORD: [id number] :58 [facility] ADMISSION DATE:05/01/21 SURGEON: EMMANUEL TRUJILLO MD DATE OF OPERATION: 05/04/2021 SURGEON: Emmanuel Trujillo MD PROCEDURE PERFORMED: 1. Coronary artery bypass graft times 3 (left internal mammary artery to LAD, reverse saphenous vein graft from aorta to obtuse marginal, aorta to posterior descending artery). 2. Endoscopic saphenous vein harvest. PREOPERATIVE DIAGNOSES: Coronary artery disease with history of left main stent and severe left main stenosis, LAD occlusion, and cardiomyopathy. POSTOPERATIVE DIAGNOSES: Coronary artery disease with history of left main stent and severe left main stenosis, LAD occlusion, and cardiomyopathy. ANESTHESIA: General endotracheal anesthesia. ESTIMATED BLOOD LOSS: Total cardiopulmonary bypass with Cell Saver retransfusion, 1 packed red blood cell, 1 platelet, 1 FFP. SPECIMENS: EPIFANIO lymph node. COMPLICATIONS: None. CONDITION: Stable. DISPOSITION: CV ICU. OPERATIVE FINDINGS: 1. Good quality greater saphenous vein harvested from the right leg as the radial artery was too small for use and the right leg SCOTTY was better than the left. 2. LAD was a 1 mm vessel and it was side by side with a small diagonal vessel as well. After anastomosis, the 1 mm probe passed distally, but the Doppler signal was poor, no other targets were available for bypass and this is not likely to have long-term patency. 3. Obtuse marginal 1.5 mm with severe disease. 4. Posterior descending artery 2.0 mm proximal posterior descending artery plaque. Excellent diastolic Doppler flow after reversal of heparin. 5. Adhesions, right upper lobe along the mediastinum and parietal pleura. INDICATION: History of cardiogenic shock and left main stent. DESCRIPTION OF PROCEDURE: The patient was brought to the operating suite. General anesthesia was obtained. The patient was prepped and draped. Greater saphenous vein was harvested endoscopically in the right lower extremity. The vessels ligated proximally and distally removed. Several branches were tied. Thin sites were oversewn. Leg was irrigated and closed in 2 layers. Median sternotomy incision was made. Subcutaneous tissue divided with electrocautery. Sternum was divided with a saw. The left hemisternum was OPERATIVE REPORT [id number] DEEPA CADET elevated. The pleural cavity was entered. Left internal mammary artery and vein was taken down as a pedicle graft. Sternal retractor was placed. The right pleura was also opened on opening the chest. The pericardium was opened. Heparin was given. Aorta was cannulated. Dual stage venous cannula was inserted. The patient was placed on cardiopulmonary bypass due to borderline instability. The internal mammary was clipped distally and made ready for anastomosis. Sites for distal anastomoses were selected. Antegrade cardioplegia cannula was inserted. The patient was cooled. Crossclamp was placed. Cardioplegia was given antegrade and repeated at 15 to 20-minute intervals including down the completed vein grafts. Distal anastomosis was performed in standard technique, proximal anastomosis with single cross-clamp technique. The aortic root was de-aired by removing the clamp, de-airing the root, tying the proximal anastomosis, de-airing the vein graft, restoring the flow. Proximal and distal anastomotic sites inspected for bleeding. The patient was fully rewarmed and weaned from cardiopulmonary bypass and was stable. The patient was decannulated. Cannulation sites were oversewn. Protamine was given. Thorough irrigation was undertaken. Graft lay appropriately. A drain was placed in the mediastinum with tips of both pleural cavity and 2 smaller drains dependently in the pleural cavities. Pericardial fat was loosely reapproximated after placing atrial and ventricular pacing wires. The left chest was evacuated and irrigated. The internal mammary harvest site was inspected for bleeding. Sternum was closed with wires. Fascia was closed. Subcutaneous tissue was closed. Skin was closed. Dermabond was placed. The needle and sponge counts were reported as correct and the patient was taken to the ICU in stable condition. TRANSINT:[id number] Voice Confirmation ID: [id number] DOCUMENT ID: [id number] EMMANUEL TRUJILLO MD at 1636 CC: RICK COREAS, BEBETO ROACH and ROBERT FORMAN MD [id number] DICTATION DATE: 05/04/21 1419 HOSPICE TEAM LEAD: 05/04/21 1617 ADM IN [place] [id number] [place] [id number]
[2021-05-06] VITALS (27 sets, daily range): BP systolic 90–137; BP diastolic 46–98
[2021-05-06 05:51] LABS: BASOPHILS 0.2 % (0-2); EOSINOPHILS 0.4 % (0-7); HEMATOCRIT 30.8 % (36.0-48.0); HEMOGLOBIN 10.3 g/dL (12-16); LYMPHOCYTES 9.9 % (15-50); MCH 29.9 pg (26.0-34.0); MCHC 33.4 g/dL (31.0-37.0); MCV 89.4 fL (80.0-100.0); MEAN PLATELET VOLUME 7.6 fL (7.4-10.4); MONOCYTES 8.3 % (2-11); NEUTROPHILS 81.2 % (40-80); PLATELET COUNT 192 10x3/uL (130-400); RBC 3.44 10x6/uL (4.00-5.40); RDW 15.5 % (11.5-14.5); WBC 13.8 10x3/uL (4.8-10.8)
[2021-05-06 06:06] LABS: ALKALINE PHOSPHATASE 63 U/L (30-120); ALT (SGPT) 27 U/L (10-68); BILIRUBIN - TOTAL 0.75 mg/dL (0.2-1.3); CALC OSMOLALITY 278 mosm/kg (275-300); CALCIUM 8.1 mg/dL (8.5-10.1); CHLORIDE - SERUM 103 mmol/L (98-107); CREATININE - SERUM 0.7 mg/dL (0.6-1.3); GLUCOSE 131 mg/dL (74-106); POTASSIUM - SERUM 4.3 mmol/L (3.5-5.1); PROTEIN - SERUM 6.3 g/dL (6.4-8.2); SODIUM 139 mmol/L (136-145); UREA NITROGEN 9 mg/dL (7-18); eGFR NON AFRICAN AMERICAN 90 mL/min (90-120)
[2021-05-06 06:07] LABS: PHOSPHOROUS 2.4 mg/dL (2.5-4.9)
--- NOTE | 2021-05-06 07:00 | NUR ---
REPORT RECIEVED. ASSESSMENT COMPELTE PER FLOW SHEET. ASSISTED TO CHAIR WITH MINIMAL ASSISTANCE. ENCOURAGED I/S WEAK EFFORT 500 MET. NON PRODUCTIVE COUGH PRESENT. DENIES NEEDS.
--- NOTE | 2021-05-06 10:30 | NUR ---
DR TRUJILLO AT BEDSIDE ORDER TO REMOVE BOOKER. BOOKER REMOVED CATH INTACT
--- NOTE | 2021-05-06 20:00 | NUR ---
PATIENT RESTING WITH EYES CLOSED. EASILY ROUSED AND ALERT. ASSESSMENT COMPLETED PER FLOW SHEET WITH NO ACUTE DISTRESS OBSERVED. MONITORS CONNECTED TO [employer] WITH ALARMS SET. VSS. NSR ON MONITOR. DENIES NEEDS . CALL LIGHT IN REACH AND ABLE TO UTILIZE TO MAKE NEEDS KNOWN.
[2021-05-07] VITALS (21 sets, daily range): BP systolic 93–124; BP diastolic 42–79
[2021-05-07 05:01] LABS: BASOPHILS 0.2 % (0-2); EOSINOPHILS 2.4 % (0-7); HEMATOCRIT 29.4 % (36.0-48.0); HEMOGLOBIN 9.4 g/dL (12-16); IMMATURE GRANULOCYTES 0.2 % (0-5); LYMPHOCYTE ABS# 1.52 10x3/uL (1.18-3.74); LYMPHOCYTES 13.2 % (15-50); MCH 29.7 pg (26.0-34.0); MEAN PLATELET VOLUME 9.5 fL (7.4-10.4); MONOCYTES 9.9 % (2-11); NEUTROPHIL ABS# 8.54 10x3/uL (1.56-6.13); NEUTROPHILS 74.1 % (40-80); PLATELET COUNT 195 10x3/uL (130-400); RBC 3.16 10x6/uL (4.00-5.40); RDW 15.3 % (11.5-14.5); WBC 11.5 10x3/uL (4.8-10.8)
[2021-05-07 05:21] LABS: ALBUMIN 2.8 g/dL (3.4-5.0); ALKALINE PHOSPHATASE 65 U/L (30-120); ALT (SGPT) 27 U/L (10-68); BILIRUBIN - TOTAL 0.54 mg/dL (0.2-1.3); CALC OSMOLALITY 280 mosm/kg (275-300); CALCIUM 8.3 mg/dL (8.5-10.1); CARBON DIOXIDE 32.4 mmol/L (21.0-32.0); CHLORIDE - SERUM 105 mmol/L (98-107); CREATININE - SERUM 0.7 mg/dL (0.6-1.3); GLUCOSE 109 mg/dL (74-106); PHOSPHOROUS 2.5 mg/dL (2.5-4.9); PROTEIN - SERUM 6.3 g/dL (6.4-8.2); SODIUM 141 mmol/L (136-145); UREA NITROGEN 9 mg/dL (7-18); eGFR NON AFRICAN AMERICAN 90 mL/min (90-120)
--- NOTE | 2021-05-07 09:45 | NUR ---
0900: SPO2 89 ON 2 LPM NC. INCREASED BACKED TO 4 LPM.
[2021-05-08] VITALS (23 sets, daily range): BP systolic 90–146; BP diastolic 51–91
[2021-05-08 06:05] LABS: ALBUMIN 2.7 g/dL (3.4-5.0); ALKALINE PHOSPHATASE 68 U/L (30-120); ALT (SGPT) 30 U/L (10-68); CALC OSMOLALITY 280 mosm/kg (275-300); CALCIUM 8.3 mg/dL (8.5-10.1); CARBON DIOXIDE 30.3 mmol/L (21.0-32.0); CHLORIDE - SERUM 104 mmol/L (98-107); CREATININE - SERUM 0.7 mg/dL (0.6-1.3); GLUCOSE 111 mg/dL (74-106); POTASSIUM - SERUM 3.5 mmol/L (3.5-5.1); PROTEIN - SERUM 6.4 g/dL (6.4-8.2); SODIUM 141 mmol/L (136-145); UREA NITROGEN 10 mg/dL (7-18); eGFR NON AFRICAN AMERICAN 90 mL/min (90-120)
[2021-05-08 07:53] LABS: HEMOGLOBIN 9.5 g/dL (12-16); MCH 30.3 pg (26.0-34.0); MCHC 33.9 g/dL (31.0-37.0); MEAN PLATELET VOLUME 8.1 fL (7.4-10.4); RBC 3.13 10x6/uL (4.00-5.40); RDW 15.6 % (11.5-14.5); WBC 10.1 10x3/uL (4.8-10.8)
[2021-05-08 07:54] LABS: MCV 89.3 fL (80.0-100.0)
--- NOTE | 2021-05-08 12:13 | NUR ---
Nutrition Follow-up: POD 4 CABG. Poor appetite/PO intake. Reports that she has had nausea and dry heaves. Declines nutrition supplements. Diet: Cardiac PO intake: 13% avg x 3 meals yesterday Wt: 167# (05/08) Labs noted: Glu 111, Ca 8.3, Alb 2.7 Meds noted: Senokot, Colace, Zofran, Pepcid, electrolyte protocol -Encourage PO intake and honor food preferences within diet restrictions. -RD will follow up within 2-3 days.
--- NOTE | 2021-05-08 15:48 | NUR ---
LESA REEVES RN, IN ROOM ATTEMPTING MIDLINE PRIOR TO PULLING CVL FOR IV ACCESS.
--- NOTE | 2021-05-08 16:18 | NUR ---
REPORTED THAT WE ARE UNABLE TO GET A PIV NOR MIDLINE TO DR. TRUJILLO. HE OK'S PULLING THE CVL. CVL PULLED, TIP INTACT. PRESSURE HELD 10 MINUTES AND OCCLUSIVE DRSG APPLIED.
[2021-05-08] MEDS ORDERED: PLAVIX75 MG PO (18:05)
[2021-05-08] MEDS ORDERED: AMIODARONE HCL200 MG PO (18:06)
[2021-05-08] MEDS ORDERED: LOPRESSOR25 MG PO (18:06)
[2021-05-08] MEDS ORDERED: LOW DOSE ASPIRI81 M1 PO (18:07)
--- NOTE | 2021-05-08 20:28 | NUR ---
PT ASSESSED AD GIVE 2100 MEDS, PRN NORCO GIVEN, PT REPORT PAIN RELIEVED TO 3/10. 02 VIA NC INCREASED FROM 1L TO 2L VIA NC AND HUMIDITY ADDED FOR PT COMPLAINT OF DRY SORE NOSE. NO PIV AT SHIFT CHANGE, OFFGOING RN REPORTS DR TRUJILLO AWARE AND PIV HAS BEEN ATTEMPTED TODAY, PT AGREED TO ALLOW THIS NURSE TO ASSESS VEINS, 22G SITED TO R AC ON 1ST ATTEMPT WITH GOOD BLOOD RETURN, PRN ZOFRAN GIVEN FOR PT COMPLAINT OF NAUSEA AND ICE PACK APPLIED TO BACK OF PT NECK. SCD'S TO WALE YANEZ. DRESSING TO MIDSTERNAL ASSESSED, C/D/I, PACER WIRES INTACT AND NOT TOUCHING. PT SISTER AT BEDSIDE, CALL LIGHT WITHIN REACH, PT DENIES CONPLAINTS OR UNMET NEEDS.
[2021-05-09] VITALS (11 sets, daily range): BP systolic 105–139; BP diastolic 53–83
[2021-05-09 04:30] LABS: HEMATOCRIT 27.9 % (36.0-48.0); HEMOGLOBIN 9.4 g/dL (12-16); MCH 30.2 pg (26.0-34.0); MCHC 33.7 g/dL (31.0-37.0); MCV 89.5 fL (80.0-100.0); MEAN PLATELET VOLUME 7.4 fL (7.4-10.4); RBC 3.12 10x6/uL (4.00-5.40); WBC 8.1 10x3/uL (4.8-10.8)
[2021-05-09 04:54] LABS: ALBUMIN 2.5 g/dL (3.4-5.0); ALKALINE PHOSPHATASE 63 U/L (30-120); ALT (SGPT) 30 U/L (10-68); CALC OSMOLALITY 279 mosm/kg (275-300); CALCIUM 8.1 mg/dL (8.5-10.1); CARBON DIOXIDE 31.2 mmol/L (21.0-32.0); CHLORIDE - SERUM 106 mmol/L (98-107); CREATININE - SERUM 0.8 mg/dL (0.6-1.3); GLUCOSE 109 mg/dL (74-106); POTASSIUM - SERUM 3.3 mmol/L (3.5-5.1); PROTEIN - SERUM 6.1 g/dL (6.4-8.2); SODIUM 141 mmol/L (136-145); eGFR NON AFRICAN AMERICAN 77 mL/min (90-120)
[2021-05-09 05:12] LABS: UREA NITROGEN 7 mg/dL (7-18)
--- NOTE | 2021-05-09 06:50 | NUR ---
FULL BED BATH AND LINEN CHANGE COMPLETED, PT BRUSHED TEETH, REPORTS PAIN IS CONTROLLED, DENIES COMPLAINTS OR UNMET NEEDS. CALL LIGHT WITHIN REACH.
--- NOTE | 2021-05-09 13:00 | NUR ---
REPORT RECEIVED FROM ROSHAN SOTELO AND PATIENT CARE ASSUMED. PATIENT COMPLAINS OF GAS. CALLED DR VEGA RECEIVED NEW ORDER FOR SIMETHICONE PO.
[2021-05-09] MEDS ORDERED: PERCOCET 5-3251 TAB PO (14:17)
--- NOTE | 2021-05-09 18:07 | NUR ---
PATIENT IS STABLE AND VSS. WRITTEN AND VERBAL INSTRUCTIONS GIVEN PATIENT VERBALIZED UNDERSTANDING AND SIGNED INTRUCTIONS . IV DCD WITHOUT DIFFICULTY WITH ENTIRE CATHETER INTACT . PRESSURE BANDAGE APPLIED. PATIENT TO FRONT DOOR VIA WC ACCOMPANIED BY FAMILY MEMBER AND HOSPITAL STAFF TO PRIVATE VEHICLE DRIVEN BY FAMILY MEMBER.
== END 2021-05-09 18:17 | disposition home or self-care (01) | DRG 235 ==
LOC: D.CVICU 07:36 → D.M2 07:36 → D.SDCHOLD 07:36 → D.M2 07:38 → D.SDCHOLD 05-04 07:00 → D.CVICU 05-04 10:58
PROVIDERS: Emergency Medicine; ADMIT Thoracic Surgery (Cardiothoracic Vascular Surgery); ATTEND Thoracic Surgery (Cardiothoracic Vascular Surgery)
PROC: 021109W Bypass Coronary Artery, Two Arteries from Aorta with Autologous Venous Tissue, Open Approach (ICD-10-PCS; 2021-05-04)
PROC: 06BP4ZZ Excision of Right Saphenous Vein, Percutaneous Endoscopic Approach (ICD-10-PCS; 2021-05-04)
PROC: 0210099 Bypass Coronary Artery, One Artery from Left Internal Mammary with Autologous Venous Tissue, Open Approach (ICD-10-PCS; principal; 2021-05-04 07:30)
DX: T82.855A Stenosis of coronary artery stent, initial encounter (principal); J96.01 Acute respiratory failure with hypoxia; J98.11 Atelectasis; I25.10 Atherosclerotic heart disease of native coronary artery without angina pectoris; I10 Essential (primary) hypertension; Z95.5 Presence of coronary angioplasty implant and graft; K21.9 Gastro-esophageal reflux disease without esophagitis; E03.9 Hypothyroidism, unspecified; Z79.01 Long term (current) use of anticoagulants; I25.2 Old myocardial infarction; E87.5 Hyperkalemia; Z87.891 Personal history of nicotine dependence; D64.9 Anemia, unspecified; R53.81 Other malaise

== ENCOUNTER → 2021-05-24 09:00 | Outpatient (CLI) | payer OTHER ==
[2021-05-05 10:52] VITALS: BMI 31.6
[~2021-05-24 09:00] MED LIST changes: +AMIODARONE HCL200 MG PO; +LOW DOSE ASPIRI81 M1 PO; +PERCOCET 5-3251 TAB PO
[2021-05-24 10:09] LABS: BASOPHILS 0.9 % (0-2); EOSINOPHILS 6.4 % (0-7); HEMATOCRIT 37.6 % (36.0-48.0); LYMPHOCYTES 22.9 % (15-50); MCH 28.4 pg (26.0-34.0); MCHC 31.8 g/dL (31.0-37.0); MCV 89.5 fL (80.0-100.0); MEAN PLATELET VOLUME 6.7 fL (7.4-10.4); MONOCYTES 8.4 % (2-11); NEUTROPHILS 61.4 % (40-80); RBC 4.21 10x6/uL (4.00-5.40); RDW 15.9 % (11.5-14.5); WBC 7.1 10x3/uL (4.8-10.8)
[2021-05-24 10:12] LABS: PLATELET COUNT 499 10x3/uL (130-400)
[2021-05-24 10:42] LABS: ALBUMIN 3.3 g/dL (3.4-5.0); ANION GAP 12.1 mmol/L (8-16); BILIRUBIN - TOTAL 0.35 mg/dL (0.2-1.3); CALCIUM 8.8 mg/dL (8.5-10.1); CREATININE - SERUM 1.1 mg/dL (0.6-1.3); POTASSIUM - SERUM 4.1 mmol/L (3.5-5.1); PROTEIN - SERUM 7.2 g/dL (6.4-8.2)
== END | disposition home or self-care (01) ==
LOC: D.RAD 09:00
PROVIDERS: ATTEND Thoracic Surgery (Cardiothoracic Vascular Surgery)
DX: Z48.812 Encounter for surgical aftercare following surgery on the circulatory system (principal); I25.10 Atherosclerotic heart disease of native coronary artery without angina pectoris